=== PATIENT | female | born 1950 | race Caucasian/White ===

== ENCOUNTER → 2020-11-29 | Outpatient (CLI) | payer MEDICARE, OTHER ==
[~2020-11-29] MED LIST: ALLEGRA ALLERG180 MG PO; CINNAMON500 MG PO; DICLOFONO2.5 GM TP; ELIQUIS2.5 MG PO; EXCEDRIN MIGRA1 EACH PO; EYE DROPS15 M1 EYEBOTH; FLONASE 0.05% N16 GM; IBUPROFEN800 MG PO; NORCO 5-325 TA1 EACH PO; OMEPRAZOLE20 M1 PO; TRAZODONE HCL50 MG PO; TYLENOL SINUS PO; VITAMIN B-121000 MCG PO; VITAMIN D31000 UNI1 PO; [UNRECOGNIZED DRUG - OTHER] PO
== END ==
LOC: US 12:53
DX: R22.1 Localized swelling, mass and lump, neck (principal); E04.2 Nontoxic multinodular goiter; R93.89 Abnormal findings on diagnostic imaging of other specified body structures
CPT/HCPCS: 76536

== ENCOUNTER → 2021-03-21 | Outpatient (CLI) | payer MEDICARE, OTHER | LOC: EXRD 08:49 | DX: M06.9 Rheumatoid arthritis, unspecified (principal); M85.842 Other specified disorders of bone density and structure, left hand; M85.841 Other specified disorders of bone density and structure, right hand; M19.041 Primary osteoarthritis, right hand; M19.042 Primary osteoarthritis, left hand | CPT/HCPCS: 73130 ==

== ENCOUNTER → 2021-04-23 | Outpatient (CLI) | payer MEDICARE, OTHER | LOC: EXRD 11:00 | DX: M85.88 Other specified disorders of bone density and structure, other site (principal); M81.0 Age-related osteoporosis without current pathological fracture | CPT/HCPCS: 77080 ==